=== PATIENT | female | born 1945 | race Caucasian/White ===

== ENCOUNTER 2018-06-10 12:48 | Day surgery (SDC) | payer MEDICARE, OTHER ==
[2018-06-09 15:57] LABS: BASOPHILS 0.3 % (0-2); EOSINOPHILS 2.4 % (0-7); HEMATOCRIT 34.3 % (36.0-48.0); HEMOGLOBIN 11.4 g/dL (12-16); IMMATURE GRANULOCYTES 0.2 % (0-5); LYMPHOCYTES 31.4 % (15-50); MCH 33.3 pg (26.0-34.0); MCHC 33.2 g/dL (31.0-37.0); MCV 100.3 fL (80.0-100.0); MEAN PLATELET VOLUME 12.1 fL (7.4-10.4); MONOCYTES 7.9 % (2-11); NEUTROPHILS 57.8 % (40-80); PLATELET COUNT 211 10x3/uL (130-400); RBC 3.42 10x6/uL (4.00-5.40); RDW 13.7 % (11.5-14.5); WBC 10.1 10x3/uL (4.8-10.8)
[2018-06-09 16:05] LABS: APTT 30.7 SECONDS (22.8-39.4); INR 1.04 (0.85-1.17); PROTIME 13.2 SECONDS (11.6-15.0)
[2018-06-09 16:07] LABS: CALCIUM 8.6 mg/dL (8.5-10.1); CREATININE - SERUM 3.7 mg/dL (0.6-1.3)
[~2018-06-10] VITALS: Ht 149.9 cm; Wt 45.8 kg
--- NOTE | ~2018-06-10 | OP ---
PATIENT NAME: ALLIE ADDISON MEDICAL RECORD: [id number] :45 LOCATION:D.FORMERLY [facility] ADMISSION DATE: SURGEON: SHARON JHA MD DATE OF OPERATION: 06/10/2018 PREOPERATIVE DIAGNOSIS: CKD V. POSTOPERATIVE DIAGNOSIS: CKD V and infrarenal abdominal aortic aneurysm. SURGEON: Sharon Jha MD ANESTHESIA: General endotracheal per TENTERING MACHINE FEEDER. OPERATION PERFORMED: Laparoscopic implantation of peritoneal dialysis catheter. REFERRING PHYSICIAN: Dr. Acuna. PREOPERATIVE NOTE: Ms. Addison is a very nice 73-year-old white female patient with severe renal insufficiency who will need to start dialysis soon. She has very poor veins and is not a great candidate for an AV fistula and since she wants to do peritoneal dialysis, we are bringing her to the operating room to implant a PD catheter. We may hopefully be able to return her to the operating room in the future for vascular access in her upper extremities. Under general endotracheal anesthesia in supine position, the patient was prepped and draped in a sterile manner. On abdominal palpation, I noted a fist sized pulsating mass in the upper abdomen consistent with a moderate abdominal aortic aneurysm. I do not know if this was appreciated preoperatively. I did not note it on my preop exam. The patient did not tell me about it, so I do not know if she has had any imaging studies of her aorta. I made a small incision in the left upper quadrant and with care to avoid any injury to the aorta or midline pulsatile structure, I inserted a 5-mm port with a 5 mm 0-degree laparoscope in place and directed laterally and inferiorly. Pneumoperitoneum was established with carbon dioxide and a 5-mm scope was then used to visualize the intra-abdominal contents. There was significant pneumatosis of the preperitoneal spaces due to insufflation initially outside of the peritoneum. I was able to get a good look and saw that there were no hernias and no significant omentum in the lower abdomen or pelvis. I then measured for placement of a 15-[place] [employer] [place] dual cuffed goose neck coiled PD catheter. I made an incision adjacent to the umbilicus and carried this down to the anterior rectus sheath. I inserted a needle and then a guidewire through the anterior rectus sheath at the predetermined point and advanced the needle within the rectus sheath as far inferiorly as possible before entering the peritoneal cavity. The guidewire was inserted and then a dilator peel-away sheath was inserted. I placed a right-sided catheter then through the peel-away sheath and it positioned well in the pelvis. The catheter was placed in the subcutaneous tunnel to a predetermined exit point in the right lower quadrant. The Dacron felt cuff was placed within the rectus sheath deep to the anterior rectus sheath and this was snugged up with a pursestring suture of 0 Vicryl. The wound was infiltrated with 0.25% Marcaine without epinephrine and the wound closed with interrupted inverted 3-0 Vicryl and running intracuticular 4-0 Monocryl. The 5-mm port was removed from the left upper quadrant after allowing insulated carbon dioxide to escape. That incision or wound site was infiltrated with Marcaine. No attempt to close that fascia was OPERATIVE REPORT [id number] ALLIE ADDISON and the wound closed with interrupted inverted 3-0 Vicryl and Dermabond glue. Both incisions were sealed with glue and dressed with Maxorb Ag, Tegaderm, and Cavilon skin prep. I used Mastisol and quarter inch Steri-Strips to help fix the PD catheter in the right lower quadrant. We dressed it with a chlorhexidine Biopatch and additional dry sterile dressings over that. The patient was then awakened and taken to the recovery room. Blood loss during the operation was insignificant and unreplaced. All sponges, instruments and needles were accounted for. No drain was used and blood loss insignificant and unreplaced. PLAN: The patient should be able to be discharged today. If possible, I will get a CT of the abdomen without contrast before she leaves. Otherwise, we can get it in the next week or two as an outpatient. She will need to see the [facility] PD dialysis nurse specialist either later this week or early next week to have the catheter flushed. I will anticipate she can begin peritoneal dialysis in 2-4 weeks. I am a little bit cautious as her tissues are very lax and I am afraid she is a candidate for a leak and it might be fisher to wait a little longer than usual. I will see her back myself to check her wounds in about 2 weeks in the office. She is given a prescription for [place] 5/325, just 10 tablets and she can take one q.4-6 hours p.r.n. pain. TRANSINT:[id number] Voice Confirmation ID: [id number] DOCUMENT ID: [id number] SHARON JHA MD at 1623 CC: ARIADNE ACUNA MD [id number] DICTATION DATE: 06/10/18 1015 BED CONTROL SPECIALIST: 06/10/18 1237 [facility] [place] 06/10/[address] [facility] [address] [id number]
[2018-06-10 07:44] VITALS: BP 142/69; Ht 149.9 cm; Wt 45.8 kg
[~2018-06-10 12:48] MED LIST: ACETAMINOPHEN500 M1 PO; ASPIRIN EC81 M1 PO; CRESTOR20 MG PO; IMODIUM2 MG PO; LASIX40 MG PO; LISINOPRIL10 MG PO; LOPRESSOR25 MG PO; MELATONIN10 M1 PO; PLAVIX75 MG PO; REMERON15 MG PO; VELTASSA8.4 GM PO; VITAMIN D31000 UNIT PO
== END 2018-06-10 12:49 | disposition home or self-care (01) ==
LOC: D.OPS 12:48
PROVIDERS: Surgery
DX: N18.5 Chronic kidney disease, stage 5 (principal)

== ENCOUNTER 2018-06-16 10:13 | Emergency (ER) | payer MEDICARE, OTHER ==
[~2018-06-16] VITALS: Ht 149.9 cm; Wt 45.4 kg
[2018-06-16 10:21] VITALS: Ht 149.9 cm; Wt 45.4 kg
[2018-06-16 11:05] LABS: BASOPHILS 0.2 % (0-2); EOSINOPHILS 1.8 % (0-7); HEMATOCRIT 33.1 % (36.0-48.0); HEMOGLOBIN 11.1 g/dL (12-16); IMMATURE GRANULOCYTES 0.2 % (0-5); LYMPHOCYTES 20.5 % (15-50); MCH 33.2 pg (26.0-34.0); MCHC 33.5 g/dL (31.0-37.0); MCV 99.1 fL (80.0-100.0); MONOCYTES 7.4 % (2-11); NEUTROPHILS 69.9 % (40-80); PLATELET COUNT 194 10x3/uL (130-400); RBC 3.34 10x6/uL (4.00-5.40); RDW 13.6 % (11.5-14.5); WBC 12.5 10x3/uL (4.8-10.8)
[2018-06-16 11:19] LABS: ANION GAP 17.4 mmol/L (8-16); BILIRUBIN - TOTAL 0.14 mg/dL (0.2-1.3); CALCIUM 8.8 mg/dL (8.5-10.1); CARBON DIOXIDE 20.3 mmol/L (21.0-32.0); CREATININE - SERUM 4.9 mg/dL (0.6-1.3); POTASSIUM - SERUM 4.7 mmol/L (3.5-5.1); PROTEIN - SERUM 6.6 g/dL (6.4-8.2)
[2018-06-16 11:32] LABS: ALBUMIN 3.4 g/dL (3.4-5.0)
[2018-06-16 12:51] LABS: MAGNESIUM - SERUM 1.8 mg/dL (1.8-2.4); THYROID STIMULATING HORMONE 5.39 uIU/mL (0.36-3.74)
[2018-06-16] MEDS ORDERED: SYNTHROID50 MCG PO (13:10)
[2018-06-16 15:58] VITALS: BP 102/68
== END 2018-06-16 16:01 | disposition home or self-care (01) ==
LOC: D.ER 10:13
PROVIDERS: Emergency Medicine
DX: R63.0 Anorexia (principal); D64.9 Anemia, unspecified; I12.0 Hypertensive chronic kidney disease with stage 5 chronic kidney disease or end stage renal disease; N18.6 End stage renal disease; Z99.2 Dependence on renal dialysis; E03.9 Hypothyroidism, unspecified

== ENCOUNTER 2019-03-06 07:08 | Outpatient (CLI) | payer MEDICARE, OTHER ==
[~2019-03-06] VITALS: Ht 149.9 cm; Wt 58.1 kg
[~2019-03-06 07:08] MED LIST changes: +SYNTHROID50 MCG PO
[2019-03-06 07:40] LABS: ANION GAP 11.5 mmol/L (8-16); CARBON DIOXIDE 31.3 mmol/L (21.0-32.0); CREATININE - SERUM 3.9 mg/dL (0.6-1.3); POTASSIUM - SERUM 3.8 mmol/L (3.5-5.1)
[2019-03-06 07:48] LABS: INR 0.98 (0.85-1.17); PROTIME 12.5 SECONDS (11.6-15.0)
[2019-03-06 07:49] LABS: BASOPHILS 0.3 % (0-2); EOSINOPHILS 2.1 % (0-7); HEMATOCRIT 37.7 % (36.0-48.0); HEMOGLOBIN 12.7 g/dL (12-16); IMMATURE GRANULOCYTES 0.2 % (0-5); LYMPHOCYTES 34.1 % (15-50); MCH 33.3 pg (26.0-34.0); MCHC 33.7 g/dL (31.0-37.0); MEAN PLATELET VOLUME 11.9 fL (7.4-10.4); MONOCYTES 9.1 % (2-11); NEUTROPHILS 54.2 % (40-80); PLATELET COUNT 216 10x3/uL (130-400); RBC 3.81 10x6/uL (4.00-5.40); RDW 13.7 % (11.5-14.5)
[2019-03-06 08:43] VITALS: Ht 149.9 cm; Wt 58.1 kg
--- NOTE | 2019-03-06 15:09 | NUR ---
1245-dr hernandez called with orders to cancel surgery and reschedule for march 20. iv d/c and her ride notified. 1300-d/c home ambulatory.
== END 2019-03-06 13:00 | disposition home or self-care (01) ==
LOC: D.OPS 07:08 → EDSTATUS 09:15 → D.OPS 09:30
PROVIDERS: Surgery; ATTEND Internal Medicine
DX: N18.6 End stage renal disease (principal); Z53.9 Procedure and treatment not carried out, unspecified reason; Z01.812 Encounter for preprocedural laboratory examination

== ENCOUNTER 2019-03-20 06:06 | Day surgery (SDC) | payer MEDICARE, OTHER ==
[~2019-03-20] VITALS: Ht 149.9 cm; Wt 51.7 kg
[2019-03-20 06:34] LABS: BASOPHILS 0.3 % (0-2); EOSINOPHILS 2.2 % (0-7); HEMATOCRIT 38.5 % (36.0-48.0); HEMOGLOBIN 13.3 g/dL (12-16); IMMATURE GRANULOCYTES 0.1 % (0-5); LYMPHOCYTES 35.1 % (15-50); MCHC 34.5 g/dL (31.0-37.0); MCV 98.5 fL (80.0-100.0); MEAN PLATELET VOLUME 11.5 fL (7.4-10.4); MONOCYTES 7.4 % (2-11); NEUTROPHILS 54.9 % (40-80); PLATELET COUNT 244 10x3/uL (130-400); RBC 3.91 10x6/uL (4.00-5.40); RDW 13.9 % (11.5-14.5); WBC 11.2 10x3/uL (4.8-10.8)
[2019-03-20 06:38] LABS: ANION GAP 11.1 mmol/L (8-16); CALCIUM 8.3 mg/dL (8.5-10.1); CARBON DIOXIDE 30.3 mmol/L (21.0-32.0); CREATININE - SERUM 3.4 mg/dL (0.6-1.3); POTASSIUM - SERUM 3.4 mmol/L (3.5-5.1)
[2019-03-20 06:43] LABS: INR 0.96 (0.85-1.17); PROTIME 12.3 SECONDS (11.6-15.0)
[2019-03-20 07:10] VITALS: Ht 149.9 cm; Wt 51.7 kg
[2019-03-20] MEDS ORDERED: ULTRAM50 MG PO (09:59)
--- NOTE | 2019-03-20 16:30 | OP ---
PATIENT NAME: ALLIE ADDISON MEDICAL RECORD: [id number] :45 LOCATION:[facility] ADMISSION DATE: SURGEON: SHARON JHA MD DATE OF OPERATION: 03/20/2019 REFERRING PHYSICIAN: Dr. Acuna SURGEON: Sharon Jha MD PREOPERATIVE DIAGNOSES: End-stage renal disease on chronic hemodialysis without backup AV fistula. POSTOPERATIVE DIAGNOSES: End-stage renal disease on chronic hemodialysis without backup AV fistula. OPERATION PERFORMED: Creation of a Zur[place] type left brachial artery to basilic vein AV fistula. 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 Acuna that she should have an AV fistula created in order to have a backup for when and if her peritoneal dialysis fails or must be interrupted. She is brought to the operating room at this time with plans to construct a fistula or implant a graft in her left upper extremity. Under regional block plus general anesthesia per LMA by CHEMICAL PROCESS EQUIPMENT OPERATOR, the patient was prepped and draped in sterile manner. A [place] drain was used as a proximal venous tourniquet and nitroglycerin ointment was applied to the intact skin of the arm and forearm. I examined her then with Duplex ultrasound and noted she had an adequate brachial artery with minimal calcifications and atherosclerotic changes and a very tiny cephalic vein, but an excellent basilic vein in the upper arm and my intention is for her to eventually have a brachial artery to translocated basilic vein fistula, thus avoiding prosthetic grafts. Today, she will have the [place] fistula constructed to prepare her for the translocation or creation of the translocated basilic fistula. DESCRIPTION OF PROCEDURE: Under a regional block plus general anesthesia, the patient was prepped and draped in a sterile manner. I made a transverse antecubital incision on the medial aspect of the antecubital fossa and exposed the median cubital vein feeding the basilic vein medially and to the brachial artery. Both were controlled as needed with Silastic loops. The vein was ligated distally and transected and bevelled and flushed with heparinized saline and prepared for anastomosis. The artery was occluded with doubly looped Silastic tapes and an approximately 7 mm arteriotomy was made and the artery also flushed proximally and distally with heparinized saline. An end-to-side, end of vein to side of artery anastomosis was then performed with running 7-0 Prolene. When completed and the occluding loops and vascular clamp was released, excellent flow developed immediately within the new fistula and the suture line proved to be hemostatic. The wound was irrigated with Ancef/gentamicin solution and closed with interrupted inverted 3-0 Vicryl and running intracuticular 4-0 Monocryl and Dermabond glue. It was dressed with Maxorb Ag, Tegaderm, and Cavilon skin prep and the patient awakened and taken to the recovery room. We will plan for Ms. Addison to go home today and wear a sling until the axillary block wears off. She may wash over her waterproof plastic dressing as OPERATIVE REPORT [id number] ALLIE ADDISON desired, but hopefully it will remain intact until she comes to see me for her followup visit next week. I will plan to have her return to the operating room for the second stage creation of a translocated basilic vein AV fistula and within 2-4 weeks. As she is already on peritoneal dialysis, there is not quite as much urgency as one might usually encounter. Blood loss during the operation, 5 cc at most. None was replaced. Sponges, instruments, and needles were accounted for. No drain was used and no surgical specimen was submitted for histopathology. TRANSINT:[id number] Voice Confirmation ID: [id number] DOCUMENT ID: [id number] SHARON JHA MD at 1630 CC: ARIADNE ACUNA MD [id number] DICTATION DATE: 03/20/19 0950 CHEMICAL INSPECTOR: 03/20/19 1037 [facility] 03/20/19 [facility] [address] [place] [address]
== END 2019-03-20 11:10 | disposition home or self-care (01) ==
LOC: D.OPS 06:06
PROVIDERS: Surgery; ATTEND Internal Medicine
DX: N18.6 End stage renal disease (principal); Z99.2 Dependence on renal dialysis

== ENCOUNTER 2019-03-20 22:47 | Emergency (ER) | payer MEDICARE, OTHER ==
[~2019-03-20] VITALS: Ht 149.9 cm; Wt 51.7 kg
[~2019-03-20 22:47] MED LIST changes: +ULTRAM50 MG PO
[2019-03-20 22:54] VITALS: Ht 149.9 cm; Wt 51.7 kg
[2019-03-20 23:06] LABS: BASOPHILS 0.2 % (0-2); EOSINOPHILS 1.2 % (0-7); HEMATOCRIT 37.6 % (36.0-48.0); IMMATURE GRANULOCYTES 0.3 % (0-5); LYMPHOCYTES 26.9 % (15-50); MCH 34.3 pg (26.0-34.0); MCHC 34.6 g/dL (31.0-37.0); MCV 99.2 fL (80.0-100.0); MEAN PLATELET VOLUME 11.5 fL (7.4-10.4); MONOCYTES 6.7 % (2-11); NEUTROPHILS 64.7 % (40-80); PLATELET COUNT 249 10x3/uL (130-400); RBC 3.79 10x6/uL (4.00-5.40)
[2019-03-20 23:07] LABS: WBC 17.3 10x3/uL (4.8-10.8)
[2019-03-20 23:20] LABS: ALBUMIN 2.7 g/dL (3.4-5.0); ANION GAP 13.7 mmol/L (8-16); BILIRUBIN - TOTAL 0.27 mg/dL (0.2-1.3); CARBON DIOXIDE 28.1 mmol/L (21.0-32.0); CREATININE - SERUM 3.6 mg/dL (0.6-1.3); POTASSIUM - SERUM 3.8 mmol/L (3.5-5.1); PROTEIN - SERUM 5.9 g/dL (6.4-8.2)
[2019-03-21 02:55] VITALS: BP 112/65
== END 2019-03-21 02:55 | disposition home or self-care (01) ==
LOC: D.ER 22:47
PROVIDERS: Family Medicine
DX: T82.848A Pain due to vascular prosthetic devices, implants and grafts, initial encounter (principal)

== ENCOUNTER 2019-04-28 09:01 | Day surgery (SDC) | payer MEDICARE, OTHER ==
[~2019-04-28] VITALS: Ht 149.9 cm; Wt 52.6 kg
[2019-04-28 09:31] LABS: BASOPHILS 0.2 % (0-2); EOSINOPHILS 1.9 % (0-7); HEMATOCRIT 38.5 % (36.0-48.0); HEMOGLOBIN 13.3 g/dL (12-16); IMMATURE GRANULOCYTES 0.1 % (0-5); LYMPHOCYTES 34.2 % (15-50); MCH 34.2 pg (26.0-34.0); MCHC 34.5 g/dL (31.0-37.0); MEAN PLATELET VOLUME 11.5 fL (7.4-10.4); MONOCYTES 7.2 % (2-11); NEUTROPHILS 56.4 % (40-80); PLATELET COUNT 245 10x3/uL (130-400); RBC 3.89 10x6/uL (4.00-5.40); RDW 13.8 % (11.5-14.5); WBC 13.2 10x3/uL (4.8-10.8)
[2019-04-28 09:36] LABS: INR 0.96 (0.85-1.17); PROTIME 12.3 SECONDS (11.6-15.0)
[2019-04-28 09:38] LABS: ANION GAP 9.2 mmol/L (8-16); CALCIUM 8.5 mg/dL (8.5-10.1); CARBON DIOXIDE 33.6 mmol/L (21.0-32.0); CREATININE - SERUM 3.3 mg/dL (0.6-1.3); POTASSIUM - SERUM 3.8 mmol/L (3.5-5.1)
[2019-04-28] MEDS ORDERED: RENA-VITE TABL0.8 MG PO (09:56)
[2019-04-28] MEDS ORDERED: ROCALTROL0.25 MCG PO (09:57)
[2019-04-28 10:06] VITALS: Ht 149.9 cm; Wt 52.6 kg
--- NOTE | 2019-04-28 10:32 | NUR ---
1025 SAMMY SULLIVANN NOTIFIED OF LAB RESULTS, OKAY FOR SURGERY. 1030 DR. JHA OK'S NO XRAY UNLESS ANESTHESIA REQUIRES ONE.
[2019-04-28] MEDS ORDERED: ULTRAM50 MG PO (13:58)
--- NOTE | 2019-05-01 12:52 | OP ---
PATIENT NAME: ALLIE ADDISON MEDICAL RECORD: [id number] :45 LOCATION:[facility] ADMISSION DATE: SURGEON: SHARON JHA MD DATE OF OPERATION: 04/28/2019 REFERRED BY: Dr. Acuna. PREOPERATIVE DIAGNOSES: End-stage renal disease and dependence on renal dialysis and non-maturing left arm brachiobasilic arteriovenous fistula with proximal cephalic venous occlusion and venous hypertension in the left arm. SURGEON: Sharon Jha MD ANESTHESIA: General with LMA per SANDING SUPERVISOR. OPERATION PERFORMED: Open ligation of arteriovenous fistula, left arm. PREOPERATIVE NOTE: Ms. Addison is a 74-year-old white female patient who has had a brachiobasilic AV fistula created with at least initial plans to do a second stage translocation. However, she has had rather massive swelling and ecchymoses immediately following her surgery and over the past month, her swelling has gradually gotten better, but she has had a great deal of discomfort and her fistula is simply not maturing. I have done a fistulogram at [facility] and noted that there is basically no runoff from the arterialized vein above the brachial artery with arterialization of the myriad of small collateral vessels and due to the presence of a pacemaker in the left infraclavicular area, the cephalic vein is occluded, probably ligated at the time of the catheter lead insertion. I have advised the patient that this fistula should be closed down and that in the future, she may need to have another access, but at this point, she is having no trouble with her peritoneal dialysis, so may be able to put off indefinitely. Under a general anesthetic with LMA per SANDING SUPERVISOR, the patient was placed in supine position, prepped and draped in sterile manner. I examined her with ultrasound and really just could not see a better place to expose the runoff from her fistula than by reopening the antecubital incision. This was done, bleeding from skin and subcutaneous vessels was persistent consistent with the venous hypertension she has developed. I was able to identify and expose a primary runoff vein from the fistula. It was the only one I could identify with certainty. This vein was ligated with 2-0 Vicryl and 2 Hemoclips including one size medium. There was no further fistula flow identifiable by handheld Doppler and there is no palpable thrill following that. The wound was then irrigated with saline and then infiltrated and irrigated with 0.25% Marcaine without epinephrine. Wound closure was completed with interrupted 3-0 Vicryl and then interrupted 4-0 Prolene. The wound was dressed with Maxorb and dry gauze and wrapped with a Kerlix and a probe and an elastic stretch bandage. She was awakened and taken to the recovery room. Blood loss about 50 cc, was unreplaced. Sponges, instruments, and needles were accounted for. No drain was used and no surgical specimen submitted. She will go home today with a new prescription for tramadol 20 tablets and she will come back to see me in my office next week, probably on Saturday. I plan to do a dressing change at that time hopefully, though certainly not 100%. Her swelling should go down rather quickly as the pressure has been relieved and with that her discomfort. OPERATIVE REPORT [id number] ALLIE ADDISON Hakeem TRANSINT:[id number] Voice Confirmation ID: [id number] DOCUMENT ID: [id number] SHARON JHA MD at 1252 CC: ARIADNE ACUNA MD [id number] DICTATION DATE: 04/28/19 1410 BINDERY MACHINE FEEDER OFFBEARER: 04/28/19 3946 [facility] 04/28/19 [facility] [address] [place] [address]
== END 2019-04-28 14:50 | disposition home or self-care (01) ==
LOC: D.OPS 09:01
PROVIDERS: Surgery; ATTEND Internal Medicine
DX: T82.898A Other specified complication of vascular prosthetic devices, implants and grafts, initial encounter (principal); N18.6 End stage renal disease; Z99.2 Dependence on renal dialysis; Z01.812 Encounter for preprocedural laboratory examination